=== PATIENT | male | born 1935 | race Caucasian/White ===

== ENCOUNTER 2018-10-15 10:04 | Inpatient (IN) | payer MEDICARE | END 2018-10-17 12:04 | disposition home or self-care (01) | LOC: ICU 10:04 ==

== ENCOUNTER → 2021-07-18 | Outpatient (CLI) | payer MEDICARE ==
[~2021-07-18] MED LIST: ALLP300T PO; ASP81TEC PO; ASPI-1238 PO; ATOR10TA66 PO; CLCX100C PO; CLPD75T PO; GBPN600T PO; LISI10TA PO; LISI10TA25 PO; LOVA10TA PO; METO-333 PO; METO50TA7 PO; NFTRIAZ.25 PO; RANI150T11 PO; TRIA0.2581 PO; [UNRECOGNIZED DRUG - CODE] PO
[2021-07-18 11:30] LABS: ALBUMIN 3.6 GM/DL (3.2-4.5); BILIRUBIN,TOTAL 1.1 MG/DL (0.1-1.0); CALCIUM 8.8 MG/DL (8.5-10.1); CREATININE SERUM 1.03 MG/DL (0.60-1.30); POTASSIUM 4.2 MMOL/L (3.6-5.0); TOTAL PROTEIN 6.9 GM/DL (6.4-8.2)
== END ==
LOC: CARD 09:30
PROVIDERS: ATTEND Physician Assistant
DX: I08.0 Rheumatic disorders of both mitral and aortic valves (principal); I11.9 Hypertensive heart disease without heart failure; I71.4 Abdominal aortic aneurysm, without rupture; I48.20 Chronic atrial fibrillation, unspecified; I25.10 Atherosclerotic heart disease of native coronary artery without angina pectoris; E78.2 Mixed hyperlipidemia
CPT/HCPCS: 36415; 80053; 93306

== ENCOUNTER → 2022-01-30 | Day surgery (SDC) | payer MEDICARE ==
[~2022-01-30] MED LIST changes: +LIDOCAINE 2% VISCOUS 15 ML UDC ONE; +LIDOCAINE 2% VISCOUS 15 ML UDC PO ONE; +NS IV 1000 ML 0 ML ONE; +NS IV 1000 ML 1,000 ML IV SCH
--- NOTE | 2022-01-30 08:22 | Diagnostic Imaging Report ---
Indication: Cardioversion. Time of Exam: 7:27 AM Comparison is made with prior chest from 10/15/2018. Heart size stable. Changes of median sternotomy are noted. Lungs are clear. No infiltrate or failure is detected. No effusion or pneumothorax is seen. IMPRESSION: Stable chest. No acute cardiopulmonary process is detected. Dictated by: Dictated on workstation # [id number]
== END ==
LOC: CATH 08:30
PROVIDERS: ATTEND Internal Medicine Cardiovascular Disease
DX: I48.0 Paroxysmal atrial fibrillation (principal)
CPT/HCPCS: 71045; 93005